=== PATIENT | female | born 1940 ===

== ENCOUNTER → 2024-04-26 12:42 | Outpatient (REF) | payer OTHER, SELFPAY ==
--- NOTE | 2024-04-26 14:16 | CARDSERVLU ---
Echocardiogram with Lumason completed after protocol screening completed. Allergies verified.
Patent IV site: ___RT FA__
IV site flushed with 0.9% NaCl pre and post administration.
Diluted bolus method utilized to enhance visualization of ventricular diehl.
Total volume given: __6.0__ mL
Patient tolerated all procedures well without complications.
#22 michaela placed Rt FA. Lumason given. INT d/c'd. dsg applied. pressure held. No bleeding noted.
== END ==
LOC: RCS 12:42
PROVIDERS: ATTENDING PHYSICIAN Internal Medicine Cardiovascular Disease; FAMILY PHYSICIAN Family Medicine
DX: I48.0 Paroxysmal atrial fibrillation (principal); I50.30 Unspecified diastolic (congestive) heart failure
CPT/HCPCS: 93306; Q9957